=== PATIENT | male | born 1995 | race Caucasian/White ===

== ENCOUNTER 2017-06-19 09:05 | Emergency (ER) | payer BC, OTHER ==
--- NOTE | 2017-06-19 09:09 | UC ---
Bite Injury/Animal HPI - HPI Summary HPI Summary: 22 YEAR OLD MALE PRESENTS WITH COMPLAINS OF SEVERE LEFT FOOT SWELLING, BULLS EYE RASH, AND HEADACHE. I AM VERY CONCERNED ABOUT BACTERIAL MENINGITIS AND WILL SEND HIM TO THE ER. - History of Current Complaint Stated Complaint: RIGHT FOOT SWELLING, TICK BITE Time Seen by Provider: 06/19/17 09:09 Hx Obtained From: Patient Pain Scale Used: 0-10 Numeric - 10 Onset/Duration: Sudden Onset Type of Bite: Animal Has Animal Been Immunized?: Unknown Aggravating Factor(s): Exertion Alleviating Factor(s): Nothing Associated Signs And Symptoms: Positive: Fever, Swelling - Allergies/Home Medications Allergies/Adverse Reactions: Allergies Allergy/AdvReac Type Severity Reaction Status Date / Time No Known Allergies Allergy Unverified 06/19/17 09:14 Home Medications: Home Medications Ibuprofen [Advil] 800 mg PO ONCE PRN 06/19/17 [History Confirmed 06/19/17] [id number] W/ APAP [Tylenol Cold & Flu Severe] 1 tab PO DAILY PRN 06/19 [History Confirmed 06/19/17] PMH/Surg Hx/FS Hx/Imm Hx Previously Healthy: Yes Review of Systems Constitutional: Fatigue Skin: Rash Eyes: Negative ENT: Negative Respiratory: Negative Cardiovascular: Negative Gastrointestinal: Negative Genitourinary: Negative Motor: Negative Neurovascular: Negative Musculoskeletal: Other: - LEFT FOOT SWELLING Neurological: Negative Psychological: Negative All Other Systems Reviewed And Are Negative: Yes Physical Exam Triage Information Reviewed: Yes Eye Exam: Normal ENT Exam: Normal Dental Exam: Normal Neck exam: Normal Neck: Positive: 1 Respiratory Exam: Normal Cardiovascular Exam: Normal Abdominal Exam: Normal Musculoskeletal Exam: Normal Neurological Exam: Normal Psychological Exam: Normal Skin Exam: Normal Bite Injury Course/Dx - Differential Dx/Diagnosis Provider Diagnoses: LEFT FOOT SWELLING. BULLS EYE RASH. HEADACHE Discharge - Discharge Plan Condition: Stable Disposition: HOME Patient Education Materials: Tick Bite (ED), Lyme Disease (ED) Referrals: Isamar Recio MD [Medical Doctor] - Additional Instructions: Please go to er to rule out lyme meningitis.
[2017-06-19 09:36] VITALS: BP 142/63
== END 2017-06-19 09:40 | disposition home or self-care (01) ==
LOC: UCCORT 09:05
DX: M79.89 Other specified soft tissue disorders (principal); R21 Rash and other nonspecific skin eruption; R51 Headache; R50.9 Fever, unspecified; R53.83 Other fatigue
CPT/HCPCS: 99202; G0463

== ENCOUNTER 2018-07-06 17:12 | Emergency (ER) | payer BC ==
[2018-07-06 17:31] VITALS: BP 154/67
--- NOTE | 2018-07-06 17:47 | UC ---
Skin Complaint HPI - HPI Summary HPI Summary: 23-year-old male presents with onset of tender erythematous lesion to his left forearm on 07/03/2018 that has progressively worsened. Today he has noticed some redness and swelling of the forearm and states that the wound came to a head, broke open, and has been draining purulent drainage. No known injury. Denies fevers or chills. - History of Current Complaint Chief Complaint: UCLaceration Time Seen by Provider: 07/06/18 17:32 Stated Complaint: LEFT ARM LACERATION Hx Obtained From: Patient Onset/Duration: Gradual Onset, Lasting Days - 3 Onset Severity: Mild Current Severity: Moderate Pain Intensity: 0 Location: Other - left ulnar forearm Character: Swelling, Redness, Painful Aggravating Factor(s): Touch Alleviating Factor(s): Nothing Associated Signs & Symptoms: Positive: Drainage. Negative: Numbness, Fever, Chills, Red Streaks, Joint Swelling - Allergy/Home Medications Allergies/Adverse Reactions: Allergies Allergy/AdvReac Type Severity Reaction Status Date / Time No Known Allergies Allergy Unverified 07/07/18 17:50 Review of Systems Constitutional: Negative Skin: Other - See history of present illness Respiratory: Negative Cardiovascular: Negative Gastrointestinal: Negative Is Patient Immunocompromised?: No All Other Systems Reviewed And Are Negative: Yes PMH/Surg Hx/FS Hx/Imm Hx - Additional Past Medical History Additional PMH: Noncontributory Previously Healthy: Yes - Surgical History Surgical History: Yes Surgery Procedure, Year, and Place: orcioplexy - Family History Family History: Noncontributory - Social History Occupation: Employed Full-time Lives: With Family Alcohol Use: Weekly Alcohol Amount: weekends Substance Use Type: None Smoking Status (MU): Former Smoker Type: Smokeless Tobacco Amount Used/How Often: 1/2 pack daily - Immunization History Most Recent Tetanus Shot: 2013 Physical Exam Triage Information Reviewed: Yes Appearance: Well-Appearing, No Pain Distress, Well-Nourished Vital Signs: Initial Vital Signs Temp 99.4 F 07/06/18 17:21 Pulse 75 07/06/18 17:21 Resp 17 07/06/18 17:21 BP 154/67 07/06/18 17:21 Pulse Ox 99 07/06/18 17:21 Neck: Positive: Supple, No Lymphadenopathy Respiratory: Positive: Lungs clear, Normal breath sounds, No respiratory distress Cardiovascular: Positive: RRR, No Murmur, Pulses Normal, Brisk Capillary Refill Musculoskeletal: Positive: Strength Intact, ROM Intact, Edema @ - left midforearm to elbow Neurological: Positive: Alert, Other: - Sensation intact distally Skin: Positive: significant lesion(s) - 3.0 cm x 3.0 cm circular area of induration with a 0.5 cm open wound centrally draining purulent drainage. Erythema with edema extends from the wound margins involving majority of ulnar forearm from mid-forearm to elbow. Would culture was obtained and area of cellulitis marked with skin marker. Course/Dx - Course Course Of Treatment: 23 year old male presents with onset of tender, erythematous lesion to left forearm that has progressively worsened and today began draining with development of erythema and swelling to surrounding tissues. Exam reveals actively draining abscess to left forearm with surrounding cellulitis. A culture was obtained. Patient is non-toxic in appearance and would like to try outpatient treatment. Considering the significant cellulitis present I have instructed the patient to return tomorrow for re-evaluation. He is to start Bactrim DS for MRSA coverage. Verbalizes understanding and agrees with POC. - Diagnoses Provider Diagnoses: left forearm abscess, left forearm cellulitis, elevated blood pressure reading Discharge - Sign-Out/Discharge Documenting (check all that apply): Patient Departure All imaging exams completed and their final reports reviewed: No Studies - Discharge Plan Condition: Stable Disposition: HOME Prescriptions: Sulfamethox/Trimethoprim DS* [Bactrim DS 800/160 TAB*] 1 tab PO BID #20 tab Patient Education Materials: Cellulitis (ED), Abscess (ED) Referrals: No Primary Care Phys,NOPCP [Primary Care Provider] - Additional Instructions: Take Bactrim DS 1 tablet twice a day for 10 days. You were given the first dose in the clinic. You may take your next dose tomorrow morning. Keep the wound covered with a gauze dressing to collect any drainage. Change as needed. Take over the counter acetaminophen (Tylenol) or ibuprofen (Advil, Motrin) as needed for pain. Return here tomorrow afternoon or evening for a wound check. Seek immediate medical attention in the emergency room if you develop fever greater than 100.5 F, have increased pain, the redness continues to spread, have increased swelling, lose function of the arm, or develop any numbness or tingling in the hand or fingers. You blood pressure in the clinic today was also slightly elevated. You should establish with a primary care provider and have this rechecked within 4 weeks. We have provided you with a list of local primary care providers. - Billing Disposition and Condition Condition: STABLE Disposition: Home
[2018-07-06] MEDS: Sulfamethox/Trimethoprim DS 800/160* TAB PO ONE (18:10)
== END 2018-07-06 18:23 | disposition home or self-care (01) ==
LOC: UCCORT 17:12
DX: Z87.891 Personal history of nicotine dependence (principal); L02.414 Cutaneous abscess of left upper limb; L03.114 Cellulitis of left upper limb; R03.0 Elevated blood-pressure reading, without diagnosis of hypertension
CPT/HCPCS: 87070; 87077; 87186; 87205; 87640; 87641; 99212; A9270-GY; G0463

== ENCOUNTER 2018-07-07 17:35 | Emergency (ER) | payer BC ==
[2018-07-07 17:50] VITALS: BP 147/55
--- NOTE | 2018-07-07 18:06 | UC ---
Skin Complaint HPI - HPI Summary HPI Summary: Patient is here for wound check of his left arm. He states that on Tuesday he noticed what he thought was an ingrown hair on his left forearm. He states that it got progressively worse. He came here on and was evaluated. At that time, it was actively draining so the wound was cultured and he was treated with Bactrim. He returns today for a wound check as directed. He admits to some subjective fever and chills. He does note that the redness seems to have extended since his last visit. He denies any history of diabetes or known history of MRSA; however, I did look up this wound culture and it is MRSA positive. He denies any joint pain. - History of Current Complaint Chief Complaint: UCSkin Time Seen by Provider: 07/07/18 17:54 Stated Complaint: FOLLOW-UP SKIN CONCERN Hx Obtained From: Patient Onset/Duration: Gradual Onset Timing: Constant Pain Intensity: 0 Aggravating Factor(s): Nothing Alleviating Factor(s): Nothing Associated Signs & Symptoms: Positive: Fever, Chills - Allergy/Home Medications Allergies/Adverse Reactions: Allergies Allergy/AdvReac Type Severity Reaction Status Date / Time No Known Allergies Allergy Unverified 07/07/18 17:50 Review of Systems Constitutional: Fever, Chills Skin: Rash Eyes: Negative ENT: Negative Respiratory: Negative Cardiovascular: Negative Gastrointestinal: Negative Genitourinary: Negative Motor: Negative Neurovascular: Negative Musculoskeletal: Negative Neurological: Negative Psychological: Negative Is Patient Immunocompromised?: No All Other Systems Reviewed And Are Negative: Yes PMH/Surg Hx/FS Hx/Imm Hx Previously Healthy: Yes - Surgical History Surgical History: Yes Surgery Procedure, Year, and Place: orcioplexy - Family History Known Family History: Positive: None Family History: Noncontributory - Social History Occupation: Employed Full-time Lives: With Family Alcohol Use: Weekly Alcohol Amount: weekends Substance Use Type: None Smoking Status (MU): Former Smoker Type: Smokeless Tobacco Amount Used/How Often: 1/2 pack daily - Immunization History Most Recent Tetanus Shot: 2013 Vaccination Up to Date: Yes Physical Exam Triage Information Reviewed: Yes Appearance: Well-Appearing Vital Signs: Initial Vital Signs Temp 99.1 F 07/07/18 17:48 Pulse 65 07/07/18 17:48 Resp 20 07/07/18 17:48 BP 147/55 08/31/18 17:48 Pulse Ox 100 07/07/18 17:48 Vital Signs Reviewed: Yes Eyes: Positive: Conjunctiva Clear ENT: Positive: Normal ENT inspection Neck: Positive: Supple, Nontender, No Lymphadenopathy Respiratory: Positive: Lungs clear, Normal breath sounds Cardiovascular: Positive: RRR, No Murmur Abdomen Description: Positive: Nontender, No Organomegaly, Soft Bowel Sounds: Positive: Present Musculoskeletal: Positive: ROM Intact Neurological: Positive: Alert Psychological: Positive: Age Appropriate Behavior Skin Exam: Normal, Other - There is no extensive cellulitis to the left upper extremity involving the back of the hand, forearm and lower half of the upper arm. It is almost circumferential at the level of the elbow. In the area of the proximal dorsal forearm there is a pustule that is spontaneously draining pus at the time of exam. Gentle pressure at that site caused a moderate amount of pus to drain. There is no associated arthralgia in the arm has full sensorivascular motor function. Echoed appreciate no axillary adenopathy. Course/Dx - Course Course Of Treatment: Procedure: The site of the draining abscess was irrigated with sterile sodium chloride until no additional pus remained. Depth to that wound in all directions is approximately 1 cm. The wound was packed loosely with iodoform gauze. Patient tolerated the procedure well. Sterile technique was used and there was only scant bleeding. Patient wound culture is MRSA positive. Despite oral antibiotic with Bactrim this cellulitis has gotten significantly worse. As result, patient was counseled about ER transfer for additional evaluation and treatment. He agrees to transfer to the [facility] ER. He received a copy of the wound culture take with him. Report was given to CJ Varela at the [facility] ER. I advised of extensive worsening of the patient's left arm cellulitis despite by mouth antibiotics for MRSA positive infection. - Diagnoses Provider Diagnoses: MRSA positive abscess with worsening secondary cellulitis left upper extremity. Discharge - Sign-Out/Discharge Documenting (check all that apply): Patient Departure All imaging exams completed and their final reports reviewed: No Studies - Discharge Plan Condition: Stable Disposition: TRANS HIGHER LVL OF CARE FAC Referrals: No Primary Care Phys,NOPCP [Primary Care Provider] - Additional Instructions: LEAVE HERE AND GO DIRECTLY TO THE [facility] ER DISCUSSED. - Billing Disposition and Condition Condition: STABLE Disposition: Trans Higher Lvl of Care Fac
== END 2018-07-07 18:34 | disposition short-term general hospital (02) ==
LOC: UCCORT 17:35
DX: L02.414 Cutaneous abscess of left upper limb (principal); L03.114 Cellulitis of left upper limb; A49.02 Methicillin resistant Staphylococcus aureus infection, unspecified site; Z87.891 Personal history of nicotine dependence
CPT/HCPCS: 99212; G0463